=== PATIENT | male | born 1955 | race Caucasian/White ===

== ENCOUNTER 2019-05-01 09:32 | Outpatient (CLI) | payer MEDICARE ==
--- NOTE | 2019-05-01 09:47 | RAD ---
Exam:3 views right hand HISTORY: Pain. Swelling x5 days. History of gout COMPARISON: None FINDINGS: No fracture. No cortical irregularity or periosteal reaction. Joint spaces are preserved. There is soft tissue swelling. No evidence of radiopaque foreign body. IMPRESSION: Soft tissue swelling without evidence of fracture or radiopaque foreign body.
== END 2019-05-01 09:33 | disposition home or self-care (01) ==
LOC: BICRAD 09:32
PROVIDERS: ATTEND Family Medicine
DX: M79.641 Pain in right hand (principal); M79.89 Other specified soft tissue disorders

== ENCOUNTER 2025-02-27 11:30 | Outpatient (CLI) | payer MEDICARE ==
[2025-02-27 13:13] LABS: #Basophils 0.08 10x3/uL (0.0-0.2); #Eosinophils 0.13 10x3/uL (0.0-0.7); #Monocytes 0.91 10x3/uL (0.11-0.59); #Neutrophils 6.94 10x3/uL (1.40-6.50); %Basophils 0.8 % (0.0-1.0); %Eosinophils 1.3 % (0.0-10.0); %Lymphocytes 21.7 % (21.0-51.0); %Monocytes 8.8 % (0.0-10.0); %Neutrophils 66.8 % (42.0-75.0); Hematocrit 41.4 % (42.0-52.0); Hemoglobin 13.5 g/dL (14.0-18.0); Mean Corpuscular Hemoglobin 30.2 pg (27.0-31.0); Mean Corpuscular Volume 92.6 fL (78.0-98.0); Platelet Count 246 10x3/uL (130-400); Red Blood Cell (RBC) Count 4.47 mill/uL (4.70-6.10); White Blood Cell (WBC) Count 10.37 10x3/uL (4.8-10.8)
[2025-02-27 13:24] LABS: Anion Gap 15 mmol/L (10-20); BUN (Urea Nitrogen) 16 mg/dL (8.4-25.7); Calc. Creatinine Clearance 0 mL/min (70-130); Calcium 10.2 mg/dL (7.8-10.44); Carbon Dioxide 21 mmol/L (23-31); Chloride 108 mmol/L (98-107); Glucose 118 mg/dL (80-115); Potassium 4.1 mmol/L (3.5-5.1); Sodium 140 mmol/L (136-145)
[2025-02-27 13:26] LABS: INR-International Normal Ratio 1.0; PTT 28.1 sec (22.9-36.1); Prothrombin Time 12.9 sec (12.0-14.7)
== END 2025-02-27 11:31 | disposition home or self-care (01) ==
LOC: LABBT 11:30
PROVIDERS: ATTEND Urology
DX: Z01.818 Encounter for other preprocedural examination (principal); N40.1 Benign prostatic hyperplasia with lower urinary tract symptoms; K42.9 Umbilical hernia without obstruction or gangrene; R33.9 Retention of urine, unspecified; I25.10 Atherosclerotic heart disease of native coronary artery without angina pectoris; E11.65 Type 2 diabetes mellitus with hyperglycemia; K59.00 Constipation, unspecified; R82.71 Bacteriuria
CPT/HCPCS: 80048; 85025; 85610; 85730; 86850; 86900; 86901; 87086; 93005; 93010

== ENCOUNTER 2025-03-13 05:41 | Day surgery (SDC) | payer MEDICARE ==
[2025-02-27 12:35] VITALS: BMI 33.9
[2025-03-13] MEDS ORDERED: LevoFLOXacin D5W 500 mg (100 mL) BAG ONE (06:48)
[2025-03-13] MEDS ORDERED: fentaNYL PF 100 MCG/2 ML SYRINGE ONE (07:23)
[2025-03-13] MEDS ORDERED: Rocuronium Bromide 10 MG/ML (10ML VIAL) ONE (07:23)
[2025-03-13] MEDS ORDERED: PROPOFOL 20 ML ONE (07:23)
[2025-03-13] MEDS ORDERED: CEFAZOLIN 2 GM VIAL ONE (08:08)
[2025-03-13] MEDS ORDERED: PHENYLEPHRINE-NS 100 MCG/ML 10 ML SYRINGE ONE (09:04)
[2025-03-13] MEDS ORDERED: Ondansetron PF 4 MG/2 ML Vial ONE (10:22)
[2025-03-13] MEDS ORDERED: Hyoscyamine SL 0.125 MG TAB ONE ×2 (11:43→11:45)
== END 2025-03-13 15:04 | disposition home or self-care (01) ==
LOC: SDC 05:41
PROVIDERS: ATTEND Urology
PROC: 0VT08ZZ Resection of Prostate, Via Natural or Artificial Opening Endoscopic (ICD-10-PCS; principal; 2025-03-13)
DX: N40.1 Benign prostatic hyperplasia with lower urinary tract symptoms (principal); R39.14 Feeling of incomplete bladder emptying; R33.8 Other retention of urine; N41.0 Acute prostatitis; N41.1 Chronic prostatitis; I10 Essential (primary) hypertension; I25.10 Atherosclerotic heart disease of native coronary artery without angina pectoris; E11.65 Type 2 diabetes mellitus with hyperglycemia; E78.5 Hyperlipidemia, unspecified; E66.9 Obesity, unspecified; K59.00 Constipation, unspecified; K42.9 Umbilical hernia without obstruction or gangrene; Z68.33 Body mass index [BMI] 33.0-33.9, adult; Z95.5 Presence of coronary angioplasty implant and graft; Z96.641 Presence of right artificial hip joint; Z79.84 Long term (current) use of oral hypoglycemic drugs; Z79.82 Long term (current) use of aspirin; Z79.899 Other long term (current) drug therapy
CPT/HCPCS: 52601; 86850; 86900; 86901; J1956; J2405; J2704; 36415; 88305; A4333